=== PATIENT | female | born 1950 | race Caucasian/White ===

== ENCOUNTER → 2017-11-07 08:08 | Outpatient (CLI) | payer MEDICARE, OTHER, SELFPAY ==
--- NOTE | 2017-11-07 | DI.MRI.S_ITS ---
PROCEDURE: MR HEAD/BRAIN WO CON INDICATIONS: Facial weakness TECHNIQUE: Noncontrast axial T1 spin echo, axial T2 fast spin echo, sagittal and axial FLAIR, coronal T2 fast spin echo, axial gradient echo, axial diffusion and ADC through the brain. COMPARISON: None. FINDINGS: Image quality: Excellent. CSF Spaces: Basal cisterns are patent. No extra-axial fluid collections. Ventricles are normal in size and shape. Brain: No intracranial masses or hemorrhage. Earl/white matter interface is normal. Brainstem appears normal. Diffusion-weighted images demonstrate no acute ischemic insult. No chronic ischemic insults. Normal intravascular flow voids are present. Skull and face: Calvarium has normal marrow signal. Orbits appear normal. Sinuses: Sinuses and mastoids are clear. IMPRESSION: Mild microvascular atherosclerotic change in the deep white matter of each hemisphere, expected for age. No stroke or hemorrhage found, no mass lesion present. Cranial nerves visualized appear normal. Dictated by: River Olmos M.D. on 11/07/2017 at 9:32 Approved by: River Olmos M.D. on 11/07/2017 at 9:33
== END ==
PROVIDERS: PCP Internal Medicine; Visit Provider Specialist
DX: R29.810 Facial weakness (principal)
CPT/HCPCS: 70551

== ENCOUNTER 2018-03-31 09:29 | Day surgery (SDC) | payer MEDICARE, OTHER, SELFPAY ==
[2018-03-31 10:18] VITALS: BP 185/79; PULSE 77; RESP 15; TEMP 36.8; O2SAT 98; BMI 30.1
[2018-03-31] MEDS: SODIUM CHLORIDE 0.9% 1,000 ML 200 ML IV ×2 (10:29→12:20)
--- NOTE | 2018-03-31 12:00 | PM.HP.1 ---
History of Present Illness Date Patient Seen: 03/31/18 Time Patient Seen: 12:01 Chief complaint: 11295 SCREENING COLONOSCOPY Narrative: Patient is a woman who is legally blind. She is about to be placed on transplant list and needs a colonoscopy. Last colonoscopy was 11 years ago. Patient History Medical History Diabetes (Chronic) HPV (human papilloma virus) infection (Chronic) Hypothyroidism (Chronic) Legally blind (Chronic) Low vision, both eyes (Chronic) Orthostatic hypotension (Chronic) Surgical History H/O kidney transplant (Chronic) Family & Social History Family History: Reviewed 03/31/18 by Mello Doshi MD Social History: household members spouse Tobacco & Substance use: Smoking Status Former smoker alcohol intake current Meds Home Medications Medication Instructions Recorded Confirmed Type acetaminophen 500 mg capsule 1,000 mg PO Q6H PRN 01/27/18 01/27/18 History acyclovir 200 mg capsule 200 mg PO QAM cap 01/27/18 01/27/18 History amlodipine 2.5 mg tablet 2.5 mg PO DAILY 01/27/18 01/27/18 History amoxicillin 500 mg capsule 2,000 mg PO .prn cap 01/27/18 01/27/18 History aspirin 81 mg chewable tablet 81 mg PO DAILY 01/27/18 01/27/18 History azelaic acid 15 % topical foam 1 applictn TOP BID 01/27/18 01/27/18 History clobetasol 0.05 % scalp solution 1 applictn TOP BID 01/27/18 01/27/18 History clocortolone pivalate 0.1 % 1 applictn TOP TID 01/27/18 01/27/18 History topical cream clopidogrel 75 mg tablet 75 mg PO DAILY 01/27/18 01/27/18 History fexofenadine 180 mg tablet 180 mg PO DAILY 01/27/18 01/27/18 History furosemide 20 mg tablet 20 mg PO DAILY 01/27/18 01/27/18 History glipizide 5 mg tablet 5 mg PO DAILY 01/27/18 01/27/18 History lactulose 10 gram/15 mL oral 10 gram PO DAILY 01/27/18 01/27/18 History solution levothyroxine 75 mcg tablet 75 mcg PO DAILY 01/27/18 01/27/18 History liraglutide 0.6 mg/0.1 mL (18 mg/3 0.6 mg SUBCUT DAILY 01/27/18 01/27/18 History mL) subcutaneous pen injector mycophenolate mofetil 250 mg 25 mg PO BID cap 01/27/18 01/27/18 History capsule permethrin 5 % topical cream 1 applictn TOP ONCE 01/27/18 01/27/18 History pravastatin 80 mg tablet 80 mg PO DAILY 01/27/18 01/27/18 History sitagliptin 100 mg tablet 100 mg PO DAILY 01/27/18 01/27/18 History Review of Systems Review of Systems All systems reviewed & are unremarkable except as noted in HPI and below Exam Vital Signs (past 8 hours): - 03/31/18 10:18 Temperature 98.2 F Pulse Rate 77 Respiratory Rate 15 Blood Pressure 185/79 H Pulse Oximetry 98 Oxygen Delivery Method Room Air Narrative Exam Narrative: Operative no apparent distress. Lungs are clear heart regular rate and rhythm abdomen was protuberant soft nontender without mass. Patient is alert and oriented. Assessment & Plan Plan: Assessment/Plan Narrative: For screening colonoscopy. Risks and benefits discussed with her in the office. She has no new questions. Will proceed.
--- NOTE | 2018-03-31 12:02 | PM.PREOP ---
Pre-operative Note Interval Note History & Physical reviewed/Exam performed by Physician: Yes Changes to H&P: No ASA Class (for procedural sedation): III
[2018-03-31] MEDS: MIDAZOLAM 5 MG/5 ML VIAL IV (12:08)
[2018-03-31] MEDS: fentaNYL 250 MCG/5 ML INJ IV (12:09)
--- NOTE | 2018-03-31 12:39 | PM.OP.ENDO ---
Operative Date/Time/Diagnoses Date of procedure: 03/31/18 Time of procedure: 12:39 Pre-op diagnosis: Screening exam. Last exam 11 years ago. Patient is about to be placed on transplant list. Post-op diagnosis: other (Sigmoid diverticulosis is.) Procedure & Clinicians Study performed: Colonoscopy Same procedure as scheduled: Yes Indications: Screening Surgeon: Mello Doshi Procedure Notes SCOAP/Timeout: Performed Procedure in detail: The patient was placed in the left lateral decubitus position and underwent IV sedation directed by the surgeon consisting of fentanyl and Versed. Digital exam was unremarkable. The scope was inserted and advanced through the rectum into the sigmoid, descending, transverse, and ascending colon. The patient was noted to have diverticulosis of the sigmoid colon. The cecum was reached identified by the ileocecal valve and the appendiceal opening. The scope was gradually brought out. No Polyps were found. The scope ultimately was retroflexed in the rectum. The appearance was normal except for some minor scarring. The scope was removed and the patient tolerated the procedure well Scope withdrawal time: 10.5 min Sedation minutes: 25 Findings: diverticulosis (Sigmoid) Specimen(s): none sent Complications: none Recommendations: Colonscopy in 10 years
[2018-03-31 13:01] VITALS: BP 137/72; PULSE 75; RESP 16; TEMP 36.8; O2SAT 96
== END 2018-03-31 13:15 | disposition home or self-care (01) ==
PROVIDERS: PCP Internal Medicine; Visit Provider Specialist
PROC: 0DJD8ZZ Inspection of Lower Intestinal Tract, Via Natural or Artificial Opening Endoscopic (ICD-10-PCS; CPT 45378; principal; 2018-03-31 10:45)
DX: Z12.11 Encounter for screening for malignant neoplasm of colon (principal); K57.30 Diverticulosis of large intestine without perforation or abscess without bleeding; E11.9 Type 2 diabetes mellitus without complications; H54.8 Legal blindness, as defined in USA; I95.1 Orthostatic hypotension; Z87.891 Personal history of nicotine dependence; Z79.84 Long term (current) use of oral hypoglycemic drugs; A63.0 Anogenital (venereal) warts
CPT/HCPCS: G0121; 99152; 99153; J2250; J3010

== ENCOUNTER 2021-12-03 13:25 | Observation (INO) | payer MEDICARE, OTHER, SELFPAY ==
[2021-12-03] VITALS (15 sets, daily range): BP systolic 94–223; BP diastolic 51–94; PULSE 58–121; RESP 17–42; TEMP 36.3–36.7; O2SAT 84–100; BMI 29.0
--- NOTE | 2021-12-03 14:12 | DI.RAD.S_ITS ---
PROCEDURE: XR CHEST 1V INDICATIONS: chest pain TECHNIQUE: One view of the chest was acquired. COMPARISON: None. FINDINGS: Surgical changes and devices: None. Lungs and pleura: Lungs are clear. No pleural effusions or pneumothorax. Mediastinum: Mediastinal contours appear normal. Heart size is normal. Bones and chest wall: No suspicious bony lesions. Overlying soft tissues appear unremarkable. IMPRESSION: No acute cardiopulmonary findings. Dictated by: Angelia Ambrosio M.D. on 12/03/2021 at 15:20 Approved by: Angelia Ambrosio M.D. on 12/03/2021 at 15:21
[2021-12-03] MEDS: SODIUM CHLORIDE 0.9% 1,000 ML 1000 ML IV (14:15)
[2021-12-03 14:28] LABS: Add Manual Diff / Slide Review NO; Basophils Absolute Auto 100 /uL (0-100); Basophils Percent Auto 1.1 % (0-2); Eosinophils Absolute Auto 200 /uL (0-450); Eosinophils Percent Auto 2.5 % (2-4); Lymphocytes Absolute Auto 1000 /uL (1100-4500); Lymphocytes Percent Auto 16.4 % (25-40); Mean Corpuscular HGB Conc 33.3 % (30-36); Mean Corpuscular Hemoglobin 31.4 PG (26-34); Mean Corpuscular Volume 94.3 fL (80-100); Monocytes Absolute Auto 500 /uL (0-900); Monocytes Percent Auto 8.4 % (3-14); Neutrophils Absolute Auto 4600 /uL (1500-7000); Neutrophils Percent Auto 71.6 % (50-75); Platelet Count 263 X10^3/uL (150-400); Red Blood Cell Count 3.81 X10^6/uL (4.0-5.2); Red Cell Distribution Width 13.1 % (11.6-14.8); White Blood Cell Count 6.4 X10^3/uL (4.5-11.0)
[2021-12-03 14:41] LABS: Alanine Aminotransferase 31 IU/L (<35); Albumin 3.9 g/dL (3.5-5.0); Albumin Globulin Ratio 1.2 (1.0-2.8); Alkaline Phosphatase 126 U/L (38-126); Aspartate Aminotransferase 51 IU/L (14-36); BUN Creatinine Ratio 12.3 (6-22); Bilirubin Total 0.5 mg/dL (0.2-1.3); Blood Urea Nitrogen 38 mg/dL (7-17); Calcium 9.1 mg/dL (8.4-10.2); Carbon Dioxide 24 mmol/L (22-32); Chloride 105 mmol/L (98-107); Creatine Kinase 80 U/L (30-135); Estimated Glomerular Filt Rate 16 mL/min (>60); Globulin 3.3 g/dL (1.7-4.1); Glucose 190 mg/dL (80-110); HEMOLYSIS < 15 (0-50); Lipase 111 U/L (23-300); Sodium 139 mmol/L (137-145); Total Protein 7.2 g/dL (6.3-8.2)
--- NOTE | 2021-12-03 14:43 | ED.NEUROSD ---
HPI - Neuro Symptoms/Deficit General Chief Complaint: Neuro Symptoms/Deficit Stated Complaint: thinks she is having TIA's for 2days Time Seen by Provider: 12/03/21 14:11 Source: patient Mode of arrival: Ambulatory History of Present Illness HPI Narrative: Patient is a 71-year-old female history of hypertension, chronic kidney disease on a kidney transplant list prior kidney transplant, legally blind, orthostatic hypotension, hyperlipidemia presenting today with difficulty speaking. Both she and her state for her the last 2 days she has had a few episodes where she has unintelligible words. Has been states the longest episode was this morning and lasted for about 5 minutes. Previously did not quite last that long. States that both arms and legs got significantly weak. He thought there was bilateral facial droop. No other symptoms On Anticoagulants: No Related Data Home Medications Medication Instructions Recorded Confirmed acetaminophen 500 mg capsule 1,000 mg PO Q6H PRN 01/27/18 01/27/18 acyclovir 200 mg capsule 200 mg PO QAM 01/27/18 01/27/18 amlodipine 2.5 mg tablet 2.5 mg PO DAILY 01/27/18 01/27/18 amoxicillin 500 mg capsule 2,000 mg PO .prn dental procedures 01/27/18 01/27/18 aspirin 81 mg chewable tablet 81 mg PO DAILY 01/27/18 01/27/18 azelaic acid 15 % topical foam 1 applictn topical BID 01/27/18 01/27/18 (Finacea) clobetasol 0.05 % scalp solution 1 applictn topical BID 01/27/18 01/27/18 clocortolone pivalate 0.1 % 1 applictn topical TID 01/27/18 01/27/18 topical cream clopidogrel 75 mg tablet (Plavix) 75 mg PO DAILY 01/27/18 01/27/18 fexofenadine 180 mg tablet 180 mg PO DAILY 01/27/18 01/27/18 furosemide 20 mg tablet 20 mg PO DAILY 01/27/18 01/27/18 glipizide 5 mg tablet 5 mg PO DAILY 01/27/18 01/27/18 lactulose 10 gram/15 mL oral 10 gram PO DAILY 01/27/18 01/27/18 solution levothyroxine 75 mcg tablet 75 mcg PO DAILY 01/27/18 01/27/18 (Synthroid) liraglutide 0.6 mg/0.1 mL (18 mg/3 0.6 mg SUBCUT DAILY 01/27/18 01/27/18 mL) subcutaneous pen injector mycophenolate mofetil 250 mg 25 mg PO BID 01/27/18 01/27/18 capsule (CellCept) permethrin 5 % topical cream 1 applictn topical ONCE 01/27/18 01/27/18 pravastatin 80 mg tablet 80 mg PO DAILY 01/27/18 01/27/18 sitagliptin 100 mg tablet (Januvia) 100 mg PO DAILY 01/27/18 01/27/18 Allergies Allergy/AdvReac Type Severity Reaction Status Date / Time No Known Drug Allergies Allergy Verified 12/03/21 14:09 Review of Systems Review of Systems Narrative: GENERAL: Denies chills, fatigue, malaise, fever, sweats, travel HEENT: Denies sinus pain, ear pain, sore throat, difficulty swallowing, neck pain RESPIRATORY: Denies dyspnea, cough, wheezing, hemoptysis, sputum. CARDIOVASCULAR: Denies chest pain, palpitations, orthopnea, edema GASTROINTESTINAL: Denies nausea, vomiting, abdominal pain, diarrhea, constipation, melena. : Denies dysuria, frequency, incontinence, hematuria, urinary retention, flank pain. MUSCULOSKELETAL: Denies weakness, joint pain, or bony pain SKIN: No rash, no erythema, no pruritus NEUROLOGIC: See HPI PSYCHIATRIC: No concerning psychosocial issues. 12 point review of systems is negative except for those stated above and HPI Hematologic/Lymphatic On Anticoagulants: No Patient History Medical History (Updated 12/03/21 @ 19:31 by Vania Dowd DO) Diabetes HPV (human papilloma virus) infection Hypothyroidism Legally blind Low vision, both eyes Orthostatic hypotension Surgical History H/O kidney transplant Family History Mother No problems noted. Father Esophageal cancer Social History marital status: household members: spouse occupational status: previously employed Smoking Status: Former smoker alcohol intake: current substance use type: does not use Smoking Status: Former smoker alcohol intake frequency: 0-2 drinks per day Substance Use Type: does not use Exam Initial Vital Signs Initial Vital Signs: Vital Signs Temperature 98.1 F 12/03/21 14:01 Pulse Rate 63 12/03/21 14:01 Respiratory Rate 18 12/03/21 14:01 Blood Pressure 134/63 12/03/21 14:01 Pulse Oximetry 99 12/03/21 14:01 Oxygen Delivery Method 12/03/21 14:01 GENERAL: Alert pleasant 71-year-old female and in no acute distress. HEENT: Head atraumatic,EOMI, pupils reactive, face symmetric, moist mucous membranes CARDIOVASCULAR: Regular rate and rhythm without murmurs, rubs or gallops. RESPIRATORY: Breath sounds equal bilaterally, no wheezes rales or rhonchi. ABDOMEN: Soft, nontender. Normoactive bowel sounds all 4 quadrants. No guarding or rebound. EXTREMITIES: Normal range of motion, no clubbing or edema. Neurovascularly intact NEUROLOGICAL: Alert and oriented x4.Normal gait and speech. Cranial nerves II through XII grossly intact. Good [id number], good [id number], strength equal bilaterally, no dysarthria or aphasia, sensation in tact to soft touch bilaterally, no visual changes, no facial droop baseline vision SKIN: Warm, dry, no laceration, no petechiae, no rashes or lesions. Scores NIH Stroke Scale Level of Conciousness: Alert, keenly responsive Ask month/age: Answers both questions correctly. Open/close eyes, close hand: Performs both tasks correctly Best gaze horizontal: Normal Visual oconnor: No visual loss Facial palsy: Normal symetrical movement Left arm drift: No drift for full 10 sec Right arm drift: No drift for full 10 sec Left leg drift: No drift for full 5 sec Right leg drift: No drift for full 5 sec Limb ataxia: Absent Sensory on face/arms/legs: Normal, no sensory loss Best language: No aphasia, normal Dysarthria: Normal Extinction or inattention: No abnormality Total NIH Stroke scale score: 0 Course Orders Ordered: ED Orders 12/03/21 14:12 XR chest 1V Stat EKG-12 Lead Stat 12/03/21 14:15 Complete Blood Count AUTO DIFF Stat Comprehensive Metabolic Panel Stat Lactate (Lactic Acid) Stat Lipase Stat Partial Thromboplastin Time Stat Procalcitonin Stat Prothrombin Time INR Stat Troponin & CK Cardiac Panel Stat 12/03/21 14:54 MR head/brain wo/w con Stat 12/03/21 16:45 Ammonia (NH3) Stat COVID19 -Nasal RAPID/Pre-Proc Stat 12/03/21 18:37 Trop I [Troponin I] Stat Sodium Chloride (Normal Saline 0.9%) 1,000 mls @ 150 mls/hr IV CONT VAN Discontinued Medications Sodium Chloride (Normal Saline 0.9%) 1,000 mls @ 1,000 mls/hr IV BOLUS ONE Stop: 12/03/21 15:24 Last Infusion: 12/03/21 16:59 Dose: 0 mls/hr Documented By: Admin: 12/03/21 14:15 Dose: 1,000 mls/hr Documented By: MASOOD Vital Signs Vital signs: Vital Signs - 8 hr 12/03/21 14:01 12/03/21 14:17 12/03/21 14:30 Temperature 98.1 F Pulse Rate 63 63 Pulse Rate [Orthostatic Lying] 61 Pulse Rate [Orthostatic Sitting] 64 Pulse Rate [Orthostatic Standing] 65 Respiratory Rate 18 Blood Pressure 134/63 Blood Pressure [Orthostatic Lying] 193/79 H Blood Pressure [Orthostatic Sitting] 182/72 H Blood Pressure [Orthostatic Standing] 94/51 L Pulse Oximetry 99 96 Oxygen Delivery Method Room Air 12/03/21 14:31 12/03/21 14:31 12/03/21 15:37 Temperature Pulse Rate 58 L 63 Pulse Rate [Orthostatic Lying] Pulse Rate [Orthostatic Sitting] Pulse Rate [Orthostatic Standing] Respiratory Rate Blood Pressure 201/82 H Blood Pressure [Orthostatic Lying] Blood Pressure [Orthostatic Sitting] Blood Pressure [Orthostatic Standing] Pulse Oximetry 99 96 Oxygen Delivery Method 12/03/21 15:41 12/03/21 15:41 12/03/21 16:00 Temperature Pulse Rate 60 59 L Pulse Rate [Orthostatic Lying] Pulse Rate [Orthostatic Sitting] Pulse Rate [Orthostatic Standing] Respiratory Rate 42 H 20 Blood Pressure 203/77 H Blood Pressure [Orthostatic Lying] Blood Pressure [Orthostatic Sitting] Blood Pressure [Orthostatic Standing] Pulse Oximetry 98 100 Oxygen Delivery Method 12/03/21 16:30 12/03/21 16:30 12/03/21 17:00 Temperature Pulse Rate 61 Pulse Rate [Orthostatic Lying] Pulse Rate [Orthostatic Sitting] Pulse Rate [Orthostatic Standing] Respiratory Rate 17 Blood Pressure 223/94 H 221/86 H Blood Pressure [Orthostatic Lying] Blood Pressure [Orthostatic Sitting] Blood Pressure [Orthostatic Standing] Pulse Oximetry 99 Oxygen Delivery Method 12/03/21 17:00 12/03/21 17:30 12/03/21 18:19 Temperature Pulse Rate 60 61 121 H Pulse Rate [Orthostatic Lying] Pulse Rate [Orthostatic Sitting] Pulse Rate [Orthostatic Standing] Respiratory Rate 21 20 36 H Blood Pressure Blood Pressure [Orthostatic Lying] Blood Pressure [Orthostatic Sitting] Blood Pressure [Orthostatic Standing] Pulse Oximetry 99 99 84 L Oxygen Delivery Method 12/03/21 18:21 12/03/21 18:21 12/03/21 18:30 Temperature Pulse Rate 63 60 Pulse Rate [Orthostatic Lying] Pulse Rate [Orthostatic Sitting] Pulse Rate [Orthostatic Standing] Respiratory Rate 27 H 34 H Blood Pressure 194/79 H Blood Pressure [Orthostatic Lying] Blood Pressure [Orthostatic Sitting] Blood Pressure [Orthostatic Standing] Pulse Oximetry 99 99 Oxygen Delivery Method MDM - Neuro Symptoms/Deficit Lab Data Result diagrams: 12/03/21 14:15 12/03/21 14:15 Labs: Lab Results 12/03/21 12/03/21 12/03/21 Range/Units 14:15 14:15 14:15 WBC 6.4 (4.5-11.0) X10^3/uL RBC 3.81 L (4.0-5.2) X10^6/uL Hgb 12.0 (12.0-16.0) g/dL Hct 36.0 (36-46) % MCV 94.3 (80-100) fL MCH 31.4 (26-34) PG MCHC 33.3 (30-36) % RDW 13.1 (11.6-14.8) % Plt Count 263 (150-400) X10^3/uL Neut % (Auto) 71.6 (50-75) % Lymph % (Auto) 16.4 L (25-40) % [place]iscoe % (Auto) 8.4 (3-14) % Eos % (Auto) 2.5 (2-4) % Baso % (Auto) 1.1 (0-2) % Neut # (Auto) 4600 (2341-1060) /uL Lymph # (Auto) 1000 L (8150-3613) /uL [place]iscoe # (Auto) 500 (0-900) /uL Eos # (Auto) 200 (0-450) /uL Baso # (Auto) 100 (0-100) /uL PT 11.9 (10.1-12.7) SECONDS INR 1.0 (0.9-1.3) APTT 33 (26-36) SECONDS Sodium 139 (137-145) mmol/L Potassium 5.0 (3.4-5.1) mmol/L Chloride 105 (98-107) mmol/L Carbon Dioxide 24 (22-32) mmol/L BUN 38 H (7-17) mg/dL Creatinine 3.09 H (0.52-1.04) mg/dL Estimated GFR 16 L (>60) mL/min BUN/Creatinine Ratio 12.3 (6-22) Glucose 190 H (80-110) mg/dL Lactate (0.7-2.1) mmol/L Calcium 9.1 (8.4-10.2) mg/dL Total Bilirubin 0.5 (0.2-1.3) mg/dL AST 51 H (14-36) IU/L ALT 31 (<35) IU/L Alkaline Phosphatase 126 (38-126) U/L Ammonia (9-30) umol/L Total Creatine Kinase 80 (30-135) U/L CK-MB (CK-2) TNP CK-MB (CK-2) Rel Index TNP Troponin I 0.023 (0.01-0.034) ng/mL Total Protein 7.2 (6.3-8.2) g/dL Albumin 3.9 (3.5-5.0) g/dL Globulin 3.3 (1.7-4.1) g/dL Albumin/Globulin Ratio 1.2 (1.0-2.8) Lipase 111 (23-300) U/L Procalcitonin (<0.5) ng/mL SARS-CoV-2 (PCR) (Negative) 12/03/21 12/03/21 12/03/21 Range/Units 14:15 14:15 16:45 WBC (4.5-11.0) X10^3/uL RBC (4.0-5.2) X10^6/uL Hgb (12.0-16.0) g/dL Hct (36-46) % MCV (80-100) fL MCH (26-34) PG MCHC (30-36) % RDW (11.6-14.8) % Plt Count (150-400) X10^3/uL Neut % (Auto) (50-75) % Lymph % (Auto) (25-40) % Briscoe % (Auto) (3-14) % Eos % (Auto) (2-4) % Baso % (Auto) (0-2) % Neut # (Auto) (7609-3654) /uL Lymph # (Auto) (0031-5856) /uL Briscoe # (Auto) (0-900) /uL Eos # (Auto) (0-450) /uL Baso # (Auto) (0-100) /uL PT (10.1-12.7) SECONDS INR (0.9-1.3) APTT (26-36) SECONDS Sodium (137-145) mmol/L Potassium (3.4-5.1) mmol/L Chloride (98-107) mmol/L Carbon Dioxide (22-32) mmol/L BUN (7-17) mg/dL Creatinine (0.52-1.04) mg/dL Estimated GFR (>60) mL/min BUN/Creatinine Ratio (6-22) Glucose (80-110) mg/dL Lactate 0.7 (0.7-2.1) mmol/L Calcium (8.4-10.2) mg/dL Total Bilirubin (0.2-1.3) mg/dL AST (14-36) IU/L ALT (<35) IU/L Alkaline Phosphatase (38-126) U/L Ammonia 13 (9-30) umol/L Total Creatine Kinase (30-135) U/L CK-MB (CK-2) CK-MB (CK-2) Rel Index Troponin I (0.01-0.034) ng/mL Total Protein (6.3-8.2) g/dL Albumin (3.5-5.0) g/dL Globulin (1.7-4.1) g/dL Albumin/Globulin Ratio (1.0-2.8) Lipase (23-300) U/L Procalcitonin 0.08 (<0.5) ng/mL SARS-CoV-2 (PCR) (Negative) 12/03/21 Range/Units 16:45 WBC (4.5-11.0) X10^3/uL RBC (4.0-5.2) X10^6/uL Hgb (12.0-16.0) g/dL Hct (36-46) % MCV (80-100) fL MCH (26-34) PG MCHC (30-36) % RDW (11.6-14.8) % Plt Count (150-400) X10^3/uL Neut % (Auto) (50-75) % Lymph % (Auto) (25-40) % Briscoe % (Auto) (3-14) % Eos % (Auto) (2-4) % Baso % (Auto) (0-2) % Neut # (Auto) (9777-2921) /uL Lymph # (Auto) (6388-4544) /uL Briscoe # (Auto) (0-900) /uL Eos # (Auto) (0-450) /uL Baso # (Auto) (0-100) /uL PT (10.1-12.7) SECONDS INR (0.9-1.3) APTT (26-36) SECONDS Sodium (137-145) mmol/L Potassium (3.4-5.1) mmol/L Chloride (98-107) mmol/L Carbon Dioxide (22-32) mmol/L BUN (7-17) mg/dL Creatinine (0.52-1.04) mg/dL Estimated GFR (>60) mL/min BUN/Creatinine Ratio (6-22) Glucose (80-110) mg/dL Lactate (0.7-2.1) mmol/L Calcium (8.4-10.2) mg/dL Total Bilirubin (0.2-1.3) mg/dL AST (14-36) IU/L ALT (<35) IU/L Alkaline Phosphatase (38-126) U/L Ammonia (9-30) umol/L Total Creatine Kinase (30-135) U/L CK-MB (CK-2) CK-MB (CK-2) Rel Index Troponin I (0.01-0.034) ng/mL Total Protein (6.3-8.2) g/dL Albumin (3.5-5.0) g/dL Globulin (1.7-4.1) g/dL Albumin/Globulin Ratio (1.0-2.8) Lipase (23-300) U/L Procalcitonin (<0.5) ng/mL SARS-CoV-2 (PCR) Negative (Negative) Point of Care Testing Glucose POC 182 Imaging Data MR: Radiologist's Impression: t: Maria T Anaya MR#: [id number] : 1950 Acct:[id number] Age/Sex: 71 / F Date of Service: 12/03/21 Loc: ED Accession Number: [id number] ?? Procedure: MR head/brain wo/w con Ordering Provider: Vania Dowd D.O. PROCEDURE:? MR HEAD/BRAIN WO/W CON ? INDICATIONS:? probable TIA ? TECHNIQUE:? Noncontrast axial T1 spin echo, axial T2 fast spin echo, sagittal and axial FLAIR, coronal T2 fast spin echo, axial gradient echo, axial diffusion and ADC through the brain.? After the administration of contrast, axial and coronal and sagittal 3D VIBE or T1 spin echo with fat saturation through the brain.? ? COMPARISON:? [facility], MR, MR HEAD/BRAIN WO CON, 11/07/2017, 8:31. ? FINDINGS:? Image quality:? Excellent.? ? CSF Spaces:? Basal cisterns are patent.? No extra-axial fluid collections.? Ventricles are normal in size and shape.? Incidental isolated cavum vergae ? Brain:? No intracranial masses or acute hemorrhage.? Earl/white matter interface is normal.? Brainstem appears normal.? Diffusion-weighted images demonstrate no acute infarct.? Normal intravascular flow voids are present.? Atrophy and confluent white matter chronic ischemic changes similar to the prior.? There are small foci of microhemorrhage in the right frontal and cerebellar deep white matter have increased in number from the prior exam ? Skull and face:? Calvarial marrow is normal in signal.? Orbits appear normal.? Bilateral intraocular lens replacements noted. ? Sinuses:? Sinuses and mastoids appear clear.? ? ? IMPRESSION:? ? Atrophy and chronic ischemic change without acute infarct, acute intracranial hemorrhage or mass lesion. ? Multifocal punctate old microhemorrhage in the right frontal and bilateral cerebellar deep white matter have increased in number from the prior exam, and may reflect hypertensive encephalopathy versus less likely amyloid angiopathy ? ? ? Approved by: Oni Garcia M.D. on 12/03/2021 at 14:49? ECG Data Interpretation: Normal rhythm rate 60 p.r. interval 150 QRS 90 QTC 432 H noted with T-wave inversions and strain in lateral leads no ST elevation no priors to compare MDM Narrative Medical decision making narrative: Patient has confusing story certainly concerning for probable TIA. She has chronic kidney disease with baseline creatinine of 3.1 today seems to be at baseline. She currently has an NIH of 0 however her blood pressure is quite elevated. She has longstanding orthostatic hypotension however she states throughout the day her blood pressure gets quite high. Elevated blood pressure could for her at risk for TIA. MRI is negative. Unable to do angio due to creatinine. Dr. Aguilar in ED to seen evaluated accepts for observation Discharge Plan Departure Patient Disposition: Admitted as Observation Clinical Impression: Transient cerebral ischemia Admit Date/Time: 12/03/21 18:30 Admit Provider: Samuel Aguilar
[2021-12-03 14:44] LABS: Prothrombin Time 11.9 SECONDS (10.1-12.7)
[2021-12-03 14:47] LABS: PTT Partial Thromboplastin Tim 33 SECONDS (26-36)
[2021-12-03 14:53] LABS: Lactate (Lactic Acid) 0.7 mmol/L (0.7-2.1); Troponin I 0.023 ng/mL (0.01-0.034)
--- NOTE | 2021-12-03 14:54 | DI.MRI.S_ITS ---
PROCEDURE: MR HEAD/BRAIN WO/W CON INDICATIONS: probable TIA TECHNIQUE: Noncontrast axial T1 spin echo, axial T2 fast spin echo, sagittal and axial FLAIR, coronal T2 fast spin echo, axial gradient echo, axial diffusion and ADC through the brain. After the administration of contrast, axial and coronal and sagittal 3D VIBE or T1 spin echo with fat saturation through the brain. COMPARISON: [facility], MR, MR HEAD/BRAIN WO CON, 11/07/2017, 8:31. FINDINGS: Image quality: Excellent. CSF Spaces: Basal cisterns are patent. No extra-axial fluid collections. Ventricles are normal in size and shape. Incidental isolated cavum vergae Brain: No intracranial masses or acute hemorrhage. Earl/white matter interface is normal. Brainstem appears normal. Diffusion-weighted images demonstrate no acute infarct. Normal intravascular flow voids are present. Atrophy and confluent white matter chronic ischemic changes similar to the prior. There are small foci of microhemorrhage in the right frontal and cerebellar deep white matter have increased in number from the prior exam Skull and face: Calvarial marrow is normal in signal. Orbits appear normal. Bilateral intraocular lens replacements noted. Sinuses: Sinuses and mastoids appear clear. IMPRESSION: Atrophy and chronic ischemic change without acute infarct, acute intracranial hemorrhage or mass lesion. Multifocal punctate old microhemorrhage in the right frontal and bilateral cerebellar deep white matter have increased in number from the prior exam, and may reflect hypertensive encephalopathy versus less likely amyloid angiopathy Approved by: Oni Garcia M.D. on 12/03/2021 at 14:49
[2021-12-03 15:10] LABS: Procalcitonin 0.08 ng/mL (<0.5)
[2021-12-03 17:14] LABS: Ammonia (NH3) 13 umol/L (9-30)
[2021-12-03 19:09] LABS: Troponin I 0.028 ng/mL (0.01-0.034)
[2021-12-03 19:14] LABS: COVID19 -Nasal RAPID Negative (Negative)
--- NOTE | 2021-12-03 19:51 | PM.HP.1 ---
History of Present Illness History of Present Illness Date Patient Seen: 12/03/21 Time Patient Seen: 18:00 Chief complaint: thinks she is having TIA's for 2days Narrative: This is a 71-year-old female with the past medical history prior kidney transplant with current possible transplant failure with a baseline creatinine of around 3.1, significant orthostatic hypotension and hypertension, type 2 diabetes, hypothyroidism, and hyperlipidemia who presented with approximately 6 episodes of global weakness that have happened over the past 2 days. She describes these episodes as 2-5 minutes in length, occurring 3 times each of the last 2 days, where she feels extremely weak like she cannot move. She denies any chest pain, palpitations, lightheadedness, or loss of consciousness during the episodes. Her further relays that she cannot move either side during these episodes, and that she tries to speak but he cannot understand her. This resolves after a couple of minutes. There is global weakness, but no facial droop, seizure activity, or loss of bowel or bladder function. It sometimes improves with rest, but not always, and sometimes is worsened with standing, but less so today as she has had episodes at rest. She has had multiple stress tests over the past few years as part of her transplant evaluations, and is actually scheduled for one on 12/25 with . EKG is sinus rhythm with lateral borderline ST depression and T-wave inversion. No prior tracings are available for review and were similar on repeat examination a couple hours after initial study in the emergency room. Her vital signs were notable for hypertension, but with standing her systolic blood pressure dropped nearly 100 points. The remainder her vital signs were unremarkable. Laboratory evaluation was notable for creatinine of 3.09 consistent with the patient's previous known baseline, so of 190, troponin was 0.023 which increased slightly to 0.028 on repeat but is still within normal limits. COVID-19 testing was negative. MRI showed atrophy and chronic ischemic change without acute infarct, but did show old microhemorrhage in the right frontal and bilateral cerebellar deep white matter. Is a admitted for further evaluation of these possible presyncopal episodes or possible TIA. Patient History Medical History (Updated 12/03/21 @ 19:31 by Vania Dowd DO) Diabetes HPV (human papilloma virus) infection Hypothyroidism Legally blind Low vision, both eyes Orthostatic hypotension Surgical History (Updated 12/03/21 @ 20:05 by Samuel Aguilar DO) H/O kidney transplant H/O: hysterectomy Family & Social History Family History (Updated 12/03/21 @ 20:06 by Samuel Aguilar DO) Mother Dementia Father Esophageal cancer Heart attack Social History: household members spouse Safety & Behavioral: Feels Safe in Current Yes Environment Been Physically Hurt or No Threatened By a Person Tobacco & Substance use: Smoking Status Former smoker alcohol intake current alcohol intake frequency 0-2 drinks per day Substance Use Type does not use Meds Home Medications and Allergies Home Medications Medication Instructions Recorded Confirmed Type acetaminophen 500 mg capsule 1,000 mg PO Q6H PRN 01/27/18 01/27/18 History acyclovir 200 mg capsule 200 mg PO QAM 01/27/18 01/27/18 History amlodipine 2.5 mg tablet 2.5 mg PO DAILY 01/27/18 01/27/18 History amoxicillin 500 mg capsule 2,000 mg PO .prn dental procedures 01/27/18 01/27/18 History aspirin 81 mg chewable tablet 81 mg PO DAILY 01/27/18 01/27/18 History azelaic acid 15 % topical foam 1 applictn topical BID 01/27/18 01/27/18 History (Finacea) clobetasol 0.05 % scalp solution 1 applictn topical BID 01/27/18 01/27/18 History clocortolone pivalate 0.1 % 1 applictn topical TID 01/27/18 01/27/18 History topical cream clopidogrel 75 mg tablet (Plavix) 75 mg PO DAILY 01/27/18 01/27/18 History fexofenadine 180 mg tablet 180 mg PO DAILY 01/27/18 01/27/18 History furosemide 20 mg tablet 20 mg PO DAILY 01/27/18 01/27/18 History glipizide 5 mg tablet 5 mg PO DAILY 01/27/18 01/27/18 History lactulose 10 gram/15 mL oral 10 gram PO DAILY 01/27/18 01/27/18 History solution levothyroxine 75 mcg tablet 75 mcg PO DAILY 01/27/18 01/27/18 History (Synthroid) liraglutide 0.6 mg/0.1 mL (18 mg/3 0.6 mg SUBCUT DAILY 01/27/18 01/27/18 History mL) subcutaneous pen injector mycophenolate mofetil 250 mg 25 mg PO BID 01/27/18 01/27/18 History capsule (CellCept) permethrin 5 % topical cream 1 applictn topical ONCE 01/27/18 01/27/18 History pravastatin 80 mg tablet 80 mg PO DAILY 01/27/18 01/27/18 History sitagliptin 100 mg tablet (Januvia) 100 mg PO DAILY 01/27/18 01/27/18 History mycophenolate mofetil 250 mg 250 mg PO BID 12/03/21 12/03/21 History capsule Allergies Allergy/AdvReac Type Severity Reaction Status Date / Time No Known Drug Allergies Allergy Verified 12/03/21 14:09 Review of Systems Review of Systems Narrative: All other systems reviewed with the patient and are negative unless otherwise stated. Exam Vital Signs (past 8 hours): - 12/03/21 14:01 12/03/21 14:17 12/03/21 14:30 Temperature 98.1 F Pulse Rate 63 63 Pulse Rate [Orthostatic Lying] 61 Pulse Rate [Orthostatic Sitting] 64 Pulse Rate [Orthostatic Standing] 65 Respiratory Rate 18 Blood Pressure 134/63 Blood Pressure [Orthostatic Lying] 193/79 H Blood Pressure [Orthostatic Sitting] 182/72 H Blood Pressure [Orthostatic Standing] 94/51 L Pulse Oximetry 99 96 Oxygen Delivery Method Room Air 12/03/21 14:31 12/03/21 14:31 12/03/21 15:37 Temperature Pulse Rate 58 L 63 Pulse Rate [Orthostatic Lying] Pulse Rate [Orthostatic Sitting] Pulse Rate [Orthostatic Standing] Respiratory Rate Blood Pressure 201/82 H Blood Pressure [Orthostatic Lying] Blood Pressure [Orthostatic Sitting] Blood Pressure [Orthostatic Standing] Pulse Oximetry 99 96 Oxygen Delivery Method 12/03/21 15:41 12/03/21 15:41 12/03/21 16:00 Temperature Pulse Rate 60 59 L Pulse Rate [Orthostatic Lying] Pulse Rate [Orthostatic Sitting] Pulse Rate [Orthostatic Standing] Respiratory Rate 42 H 20 Blood Pressure 203/77 H Blood Pressure [Orthostatic Lying] Blood Pressure [Orthostatic Sitting] Blood Pressure [Orthostatic Standing] Pulse Oximetry 98 100 Oxygen Delivery Method 12/03/21 16:30 12/03/21 16:30 12/03/21 17:00 Temperature Pulse Rate 61 Pulse Rate [Orthostatic Lying] Pulse Rate [Orthostatic Sitting] Pulse Rate [Orthostatic Standing] Respiratory Rate 17 Blood Pressure 223/94 H 221/86 H Blood Pressure [Orthostatic Lying] Blood Pressure [Orthostatic Sitting] Blood Pressure [Orthostatic Standing] Pulse Oximetry 99 Oxygen Delivery Method 12/03/21 17:00 12/03/21 17:30 12/03/21 18:19 Temperature Pulse Rate 60 61 121 H Pulse Rate [Orthostatic Lying] Pulse Rate [Orthostatic Sitting] Pulse Rate [Orthostatic Standing] Respiratory Rate 21 20 36 H Blood Pressure Blood Pressure [Orthostatic Lying] Blood Pressure [Orthostatic Sitting] Blood Pressure [Orthostatic Standing] Pulse Oximetry 99 99 84 L Oxygen Delivery Method 12/03/21 18:21 12/03/21 18:21 12/03/21 18:30 Temperature Pulse Rate 63 60 Pulse Rate [Orthostatic Lying] Pulse Rate [Orthostatic Sitting] Pulse Rate [Orthostatic Standing] Respiratory Rate 27 H 34 H Blood Pressure 194/79 H Blood Pressure [Orthostatic Lying] Blood Pressure [Orthostatic Sitting] Blood Pressure [Orthostatic Standing] Pulse Oximetry 99 99 Oxygen Delivery Method 12/03/21 18:31 12/03/21 18:31 Temperature Pulse Rate 60 Pulse Rate [Orthostatic Lying] Pulse Rate [Orthostatic Sitting] Pulse Rate [Orthostatic Standing] Respiratory Rate 30 H Blood Pressure 183/77 H Blood Pressure [Orthostatic Lying] Blood Pressure [Orthostatic Sitting] Blood Pressure [Orthostatic Standing] Pulse Oximetry 99 Oxygen Delivery Method Oxygen Delivery Method Room Air Narrative Exam Narrative: General:? Patient is well developed and well nourished, in no distress at this time. HEENT:? Normocephalic, atraumatic, extraocular muscles intact, oral pharynx is clear and mucous membranes are moist. Neck: supple and symmetric, trachea is midline, no cervical adenopathy. Negative for JVD Chest:? Normal AP diameter and contour without kyphoscoliosis, no tachypnea, equal chest rise bilaterally. Lungs:? CTA b/l no wheezing rhonchi or rales. Cardio:?RRR no m/r/g. Abdomen: S NT ND. No CVA tenderness. Musculoskeletal:? Muscle strength and tone are equal within normal limits, no deformity. Extremities: No edema or joint effusions. No cyanosis or clubbing. Skin:? Pale,? Warm to touch,dry and intact without rashes, ulcerations or petechiae.? Neuro:? Alert and orientated x3,? sensation to touch intact in all extremities, no gross deficits noted of cranial nerves. Psych:? Patient has a well-kept appearance, appropriate affect, mental status attitude thought context and judgment are appropriate for age. Objective ECG Impression: Lateral T-wave inversion and borderline ST depression, slightly improved on repeat examination, but fairly similar study is interpreted by me. Labs Result Diagrams: 12/03/21 14:15 12/03/21 14:15 Labs: Laboratory Results - last 24 hr 12/03/21 12/03/21 12/03/21 14:15 14:15 14:15 WBC 6.4 RBC 3.81 L Hgb 12.0 Hct 36.0 MCV 94.3 MCH 31.4 MCHC 33.3 RDW 13.1 Plt Count 263 Neut % (Auto) 71.6 Lymph % (Auto) 16.4 L [place] % (Auto) 8.4 Eos % (Auto) 2.5 Baso % (Auto) 1.1 Neut # (Auto) 4600 Lymph # (Auto) 1000 L [place] # (Auto) 500 Eos # (Auto) 200 Baso # (Auto) 100 PT 11.9 INR 1.0 APTT 33 Sodium 139 Potassium 5.0 Chloride 105 Carbon Dioxide 24 BUN 38 H Creatinine 3.09 H Estimated GFR 16 L BUN/Creatinine Ratio 12.3 Glucose 190 H Lactate Calcium 9.1 Total Bilirubin 0.5 AST 51 H ALT 31 Alkaline Phosphatase 126 Ammonia Total Creatine Kinase 80 CK-MB (CK-2) TNP CK-MB (CK-2) Rel Index TNP Troponin I 0.023 Total Protein 7.2 Albumin 3.9 Globulin 3.3 Albumin/Globulin Ratio 1.2 Lipase 111 Procalcitonin SARS-CoV-2 (PCR) 12/03/21 12/03/21 12/03/21 14:15 14:15 16:45 WBC RBC Hgb Hct MCV MCH MCHC RDW Plt Count Neut % (Auto) Lymph % (Auto) [place] % (Auto) Eos % (Auto) Baso % (Auto) Neut # (Auto) Lymph # (Auto) [place] # (Auto) Eos # (Auto) Baso # (Auto) PT INR APTT Sodium Potassium Chloride Carbon Dioxide BUN Creatinine Estimated GFR BUN/Creatinine Ratio Glucose Lactate 0.7 Calcium Total Bilirubin AST ALT Alkaline Phosphatase Ammonia 13 Total Creatine Kinase CK-MB (CK-2) CK-MB (CK-2) Rel Index Troponin I Total Protein Albumin Globulin Albumin/Globulin Ratio Lipase Procalcitonin 0.08 SARS-CoV-2 (PCR) 12/03/21 12/03/21 16:45 18:37 WBC RBC Hgb Hct MCV MCH MCHC RDW Plt Count Neut % (Auto) Lymph % (Auto) [place] % (Auto) Eos % (Auto) Baso % (Auto) Neut # (Auto) Lymph # (Auto) [place] # (Auto) Eos # (Auto) Baso # (Auto) PT INR APTT Sodium Potassium Chloride Carbon Dioxide BUN Creatinine Estimated GFR BUN/Creatinine Ratio Glucose Lactate Calcium Total Bilirubin AST ALT Alkaline Phosphatase Ammonia Total Creatine Kinase CK-MB (CK-2) CK-MB (CK-2) Rel Index Troponin I 0.028 Total Protein Albumin Globulin Albumin/Globulin Ratio Lipase Procalcitonin SARS-CoV-2 (PCR) Negative Assessment & Plan Assessment & Plan narrative: 1. Intermittent presyncopal episodes or possible TIA - unclear etiology of presenting episodes. May be TIA, cardiac related, or symptomatic hypotension. - continue tele - MRI negative for acute infarct, but does show probable hypertensive disease. Unable to further lower systolic BP while resting given her significant drop while standing. - continue coreg for now, continue ASA and home statin therapy. - will order TTE. - given EKG findings, suspect old ischemia but continue to trend troponins to rule out ACS. Has stress test scheduled next month at . 2. Orthostatic hypotension - PT/OT consultation. 3. History of renal transplant, with chronic kidney disease stage IV - continue home medications 4. Essential hypertension - continue home medications for now. Consider holding coreg but may not be able to do much regarding patient's hypertension with her degree of orthostasis. 5. Hypothyroidism, chronic - continue home medications, check TSH 6. DM2 - diabetic controlled diet, check A1c. FS ACHS, if high can start sliding scale initially. Code: Full, surrogate is her spouse Dispo: admit under observation DVT: Lovenox daily COVID-19 COVID-19 status: Negative Time Spent With Patient Critical Care time: I spent a total of [] minutes of critical care time on this patient's care today; this time is exclusive of procedural time. Quality MIPS - Admit I confirm the patient?s Advance Care Plan is present, Code status is documented, Surrogate decision maker is in patient?s record [If Yes, STOP here]: Yes
--- NOTE | 2021-12-03 20:12 | DI.ECHO.S_ITS ---
[facility] +---------+ [facility] +---------+ : : [address] : : : : [id number] : : : : Phone: [phone]---------+ Echocardiogram Report + + :Name: MANNY CARBONE Study Date: 12/04/2021 Height: 63 in : :[facility] ReadingLocation: Weight: 164 lb : : Gender: Female BSA: 1.8 m2 : :: 1950 Age: 71 yrs BP: 186/62 mmHg: :Reason For Study: HYPOTENSION, PRESYNCOPE VS TIA : :Ordering Physician: DAVID, : :ТАТЬЯНА MENEZES Performed By: Sadaf Guerrero : :Referring: ТАТЬЯНА HERNANDEZ : + + Interpretation Summary Bubbles seem to appear after Valsalva release. The patient was in sinus rhythm with heart rates between 61-84 bpm during the exam. The left ventricle is normal in size. There is mild asymmetric left ventricular hypertrophy. Diastolic parameters suggest a relaxation abnormality of the left ventricle, consistent with probable normal filling pressures. The left atrium is mildly dilated. Injection of contrast documented no interatrial shunt. There is mild mitral regurgitation. There is mild aortic regurgitation. No prior study for comparison. Procedure: A two-dimensional transthoracic echocardiogram with color flow and Doppler was performed. The study quality was technically adequate. There is no prior echocardiogram noted for this patient. A saline contrast injection was performed to assess for cardiac shunting. The injection was performed through an intravenous line in the right arm. The patient was in sinus rhythm with heart rates between 61-84 bpm during the exam. Left Ventricle: The left ventricle is normal in size. There is mild asymmetric left ventricular hypertrophy. The ejection fraction is estimated to be 55-60%. Diastolic parameters suggest a relaxation abnormality of the left ventricle, consistent with probable normal filling pressures. Right Ventricle: The right ventricle is normal in size and function. Atria: The left atrium is mildly dilated. Right atrial size is normal. Injection of contrast documented no interatrial shunt. Mitral Valve: The mitral valve leaflets appear mildly thickened, but open well. There is mild mitral regurgitation. Aortic Valve: The aortic valve is trileaflet. The aortic valve opens well. There is no aortic valve stenosis. There is mild aortic regurgitation. Tricuspid Valve: The tricuspid valve is normal in structure and function. Pulmonary artery pressures cannot be estimated because of the lack of a measurable TR jet velocity. Pulmonic Valve: The pulmonic valve leaflets are thin and pliable; valve motion is normal. There is mild pulmonic regurgitation. Great Vessels: The aortic root is normal size. The dimensions of the ascending aorta are normal. The IVC is of normal diameter and collapses greater than 50% with a sniff. This suggests a low right atrial pressure of 3 mm Hg. Pericardium/ Pleura There is no pericardial effusion. There is no pleural effusion. MMode/2D Measurements & Calculations LVIDd: 4.3 cm LVOT diam: 1.9 cm LVIDs: 2.9 cm Ao root diam: 2.7 cm FS: 31.9 % asc Aorta Diam: 3.1 cm IVSd: 1.3 cm Ao Arch Diam (Prox Trans): 2.9 cm LVPWd: 0.95 cm LV anderson. diameter/BSA (cm/m^2): 2.4 LV sys. diameter/BSA (cm/m^2): 1.6 LA A2 area: 20.7 cm2 RA long axis: 4.9 cm LA A4 area: 21.1 cm2 RA area: 16.1 cm2 LA length (vol): 5.4 cm RA vol: 45.1 ml LA vol: 68.6 ml RA : 25.4 ml/m2 LA vol index: 38.6 ml/m2 IVC diam: 1.6 cm RVD1 (basal): 2.7 cm RVD2 (mid): 2.6 cm TAPSE: 2.1 cm Doppler Measurements & Calculations Ao V2 max: 144.9 cm/sec LVOT Max Tavo: 88.1 cm/sec Ao V2 mean: 100.3 cm/sec LV V1 max P.1 mmHg Ao max P.4 mmHg LV V1 VTI: 21.3 cm Ao mean P.4 mmHg NOLBERTO(I,D): 1.7 cm2 Ao V2 VTI: 34.4 cm NOLBERTO(V,D): 1.7 cm2 sev ratio: 0.62 NOLBERTO indexed to BSA (cm^2/m^2): 0.97 AI P1/2t: 516.5 msec AI dec slope: 264.2 cm/sec2 MV E max tavo: 65.6 cm/sec PA V2 max: 84.2 cm/sec MV A max tavo: 94.3 cm/sec PA V2 mean: 59.1 cm/sec MV E/A: 0.70 PA mean P.6 mmHg Med Peak E' Tavo: 3.3 cm/sec PA pr(Accel): 25.9 mmHg E/E' med: 19.6 Lat Peak E' Tavo: 5.4 cm/sec E/E' lat: 12.1 E/e' average: 15.8 MV dec time: 0.33 sec SV(LVOT): 59.2 ml Reading Physician:MADHU
[2021-12-03] MEDS: MYCOPHENOLATE MOFETIL 500 MG TABLET 250 MG PO (21:58)
[2021-12-03] MEDS: ATORVASTATIN 20 MG TABLET 40 MG PO (22:01)
[2021-12-03] MEDS: ASPIRIN EC 81 MG TABLET PO (22:35)
[2021-12-04] VITALS: BP 145/62; PULSE 66; RESP 22; TEMP 36.4; O2SAT 97; O2SAT 98
[2021-12-04 04:00] VITALS: BP 177/65; PULSE 64; RESP 19; TEMP 36.6; O2SAT 99
[2021-12-04] MEDS: LEVOTHYROXINE 75 MCG TABLET 50 MCG PO (06:19)
[2021-12-04 07:18] LABS: Add Manual Diff / Slide Review NO; Basophils Absolute Auto 100 /uL (0-100); Eosinophils Absolute Auto 200 /uL (0-450); Eosinophils Percent Auto 3.8 % (2-4); Hemoglobin 11.2 g/dL (12.0-16.0); Lymphocytes Absolute Auto 1600 /uL (1100-4500); Lymphocytes Percent Auto 25.5 % (25-40); Mean Corpuscular HGB Conc 33.9 % (30-36); Mean Corpuscular Hemoglobin 31.6 PG (26-34); Mean Corpuscular Volume 93.2 fL (80-100); Monocytes Absolute Auto 800 /uL (0-900); Monocytes Percent Auto 12.3 % (3-14); Neutrophils Absolute Auto 3600 /uL (1500-7000); Neutrophils Percent Auto 57.4 % (50-75); Platelet Count 223 X10^3/uL (150-400); Red Blood Cell Count 3.54 X10^6/uL (4.0-5.2); Red Cell Distribution Width 12.9 % (11.6-14.8); White Blood Cell Count 6.3 X10^3/uL (4.5-11.0)
[2021-12-04 07:28] LABS: BUN Creatinine Ratio 12.2 (6-22); Blood Urea Nitrogen 33 mg/dL (7-17); Carbon Dioxide 21 mmol/L (22-32); Chloride 111 mmol/L (98-107); Cholesterol 146 mg/dL (140-199); Estimated Glomerular Filt Rate 18 mL/min (>60); Glucose 68 mg/dL (80-110); HDL Cholesterol 37 mg/dL (40-60); HEMOLYSIS 17 (0-50); LDL Cholesterol Calculated 51 mg/dL (<100); Magnesium 1.8 mg/dL (1.6-2.3); Potassium 4.7 mmol/L (3.4-5.1); Sodium 140 mmol/L (137-145); Triglycerides 290 mg/dL (35-150)
[2021-12-04 07:30] LABS: Hemoglobin A1C% w Est Avg Glu 7.5 % (4.0-6.0)
[2021-12-04 07:59] LABS: TSH w/ Reflex to FT4 0.55 uIU/mL (0.47-4.68)
[2021-12-04 08:16] VITALS: BP 177/61; PULSE 63; RESP 16; TEMP 36.4; O2SAT 96
[2021-12-04] MEDS: ACYCLOVIR 200 MG CAPSULE PO (08:49)
[2021-12-04] MEDS: AMLODIPINE 5 MG TABLET 2.5 MG PO (08:50)
[2021-12-04] MEDS: MYCOPHENOLATE MOFETIL 500 MG TABLET 250 MG PO (08:51)
[2021-12-04] MEDS: LORATADINE 10 MG TABLET PO (08:51)
[2021-12-04] MEDS: ENOXAPARIN 30 MG/0.3 ML SYRINGE SUBCUT (08:53)
--- NOTE | 2021-12-04 09:25 | CM.DANOTE ---
DCP Assessment: Payor confirmed: Medicare & for life PCP confirmed: Gene Collins MD Pt is a 71 y.o. F who presented to the ER with difficulty speaking. accompanied pt to the ER and thought that there could be some facial drooping. Pt has a history of HTN, CKD, legally blind, orthostatic hypotension, and hyperlipidemia. The concern is a possible TIA. BP was high in the ER. Pt admitted under observation for further management and evaluation of her symptoms. DCP met with pt this morning to discuss discharge needs. Spouse, Shoaib, at the bedside. Pt sitting up in bed. DCP introduced herself and role. Pt states they live in a single story house in [place]. Pt states she relies on her spouse for transportation but sometimes uses paratransit if needed. Pt states that she has trouble balancing while walking but does have a cane she can use. Pt declines owning a walker. Pt states that she does some stuff around the house but her spouse is the main parachute rigger for the house. Pt states that she does do paperwork and balance checkbooks. Pt states that she had a home grocery checker come to the house this past week for a blood draw but declines any home health services in the past. Pt states that she does not have any other family in the area, just me and him she states. Pt states that she does not need any resources at this time but if anything arises she would let DCP know. Whiteboard was updated and instructed to call if any other concerns arise. Pt and pt spouse thankful for discussion. P: Discharge needs unclear at this time. DCP to continue to follow pt case and assist where is needed. If no needs arise, pt to discharge home with spouse. Luna uJan RN/TODD Discharge Planning/Care Management CM Discharge Assessment Start: 12/04/21 09:02 Freq: Status: Active Protocol: Document 12/04/21 09:24 MICHELLE (Rec: 12/04/21 09:25 MICHELLE [id number]) Discharge Planning Assessment Assigned Dag Sprayer Luna Juan RN/TODD Advance Directives? No History Provided By Patient Prior Living Arrangements House Household Members spouse Type of transporation used prior to Relies on Others admit Comment Also uses [employer]rans[employer] when not utilizing spouse transport. Independent with ADL's Yes Is patient alert and oriented? Yes Needs Assistance With Home Chores / Shopping Comment Spouse does most of the chores . Caregiver for Another No DME Already Rented / Owned FWW / Walker Comment Cane Discharge Plan Home Transportation Arrangement Spouse POV Referrals Initiated None needed Additional Comment At this time. R/O HH services . Whiteboard Updated in Patient Room with Yes name and ext. # of Dag Sprayer Comment Instructed to call if needed. Review Status In Process Please Provide Date Initial DC 12/04/21 Assessment Was Performed Next Review Type Continued Stay Review
--- NOTE | 2021-12-04 10:50 | PT.IIE ---
Surgical History (Last Updated 12/03/21 @ 20:05 by Samuel Aguilar DO) H/O kidney transplant H/O: hysterectomy Medical History (Last Reviewed 12/03/21 @ 15:51 by Vania Dowd DO) Diabetes HPV (human papilloma virus) infection Hypothyroidism Legally blind Low vision, both eyes Orthostatic hypotension Physical Therapy Inpatient Evaluation/Re-Eval M1 PT/OT-IP Prior Functional Status Start: 12/04/21 14:01 Freq: NEEDED Status: Active Protocol: Document 12/04/21 10:50 AB (Rec: 12/04/21 14:24 AB [email or web address]) Medical Review Prior Functional Status Medical History Reviewed Yes Communication able to make needs known Mobility and Gait pt stated that she is modified independent with all mobilities and ambulation without AD indoors but uses her walking stick for outdoor mobility due to her vision problem. Pt is legally blind. pt stated that she has chronic problems with her BP but able to manage and ambulate short distances but then when she feels that her blood pressure is decreases she will be able to sit down and rest. Social History Household Members spouse Living Arrangements House Number of Floors (Floors) One Floor Number of Stairs To Enter/Railing? 2 platform step to enter the house Home Environment Standard Height Toilet,Walk in Shower,Tub/Shower Home Equipment Hand Held Shower Additional Social History Comment pt has a walking stick M2 PT-IP Current Condition Start: 12/04/21 14:01 Freq: NEEDED Status: Active Protocol: Document 12/04/21 10:50 AB (Rec: 12/04/21 14:24 AB [email or web address]) Physical Therapy Current Condition Current Condition Evaluation Date 12/04/21 Treatment Diagnosis hypotension; difficulty in walking Onset Date 12/03/21 M3 PT-IP Subjective Start: 12/04/21 14:01 Freq: NEEDED Status: Active Protocol: Document 12/04/21 10:50 AB (Rec: 12/04/21 14:24 AB [email or web address]) Subjective Physical Therapy Visit Type Type Initial Evaluation Visit Start Time 10:50 Visit Stop Time 11:36 Total Visit Minutes 46 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 completed supine to sit SBA. able to sit on EOB SBA. BP in sitting : 163/59. pt tolerated sitting for ~ 2 more minutes. BP checked again: 171/75. pt completed sit to stand SBA and able to stand CGA without AD. BP checked but pt unable to tolerate standing long enough for BP reading and has to sit back down. Tolerated ~ 10 sec of standing. c/o dizziness, sweating and weakness. pt sat back. BP checked: 130/55. pt rested sitting on EOB and symptoms decreased with just slight dizziness. BP checked again after restin/44. pt completed sit to stand again SBA. BP checked and again unable to tolerate much standing and has to sit back down. Pt then had slurred speech when trying to talk and answer questions. BP in sittin/47. Pt laid back in bed SBA. pt then again to answer questions. BP checked : 171/60. positioned pt in bed. call light and table placed within reach. informed pt regarding PT and that pt's symptoms are medical and at this time, until pt is more medically stable and able to tolerate upright activities, no further PT is appropriate at this time. recommending pt obtain a w/c and pt stated that she can borrow from the senior center. pt understood and agreed. informed MD regarding BP and pt's symptoms and agreed to have PT d/c at this time and nursing to monitor pt's BP and activity tolerance and will re-order PT once pt is more medically stable and able to tolerate more upright activities. informed nurse and case assembler regarding plan. PT-Balance Assessment Sitting Balance and Reactions Static Sitting Balance Ability Normal Dynamic Sitting Balance Ability Normal Standing Balance and Reactions Static Standing Balance Ability Good Device Used without AD M5 PT-IP Objective Assessments Start: 12/04/21 14:01 Freq: NEEDED Status: Active Protocol: Document 12/04/21 10:50 AB (Rec: 12/04/21 14:24 AB [email or web address]) Orientation Orientation/Cognition Level of Alertness Alert Orientation Name,Age,Birthday,Month,Date, Year,Day of Week,Place, Situation Language Function Ability No Deficits Noted Safety Awareness Decreased Safety Awareness Memory Description No Deficits Noted Comments pt is legally blind Gross Range of Motion Lower Extremity ROM Assessment Within Functional Limits Strength Lower Extremity Strength Assessment Within Functional Limits Coordination Assessment Gross Coordination Gross Coordination WNL Sensation Assessment Sensation Gross Sensation Right LE Impaired,Left LE Impaired Comments Sensation Comments BLE neuropathy Muscle Tone Muscle Tone WNL Yes M6 PT-IP Treatment Start: 12/04/21 14:01 Freq: NEEDED Status: Active Protocol: Document 12/04/21 10:50 AB (Rec: 12/04/21 14:24 AB [id number]) Physical Therapy Treatment Education Education Provided Safety M7 PT-IP Assessment and Plan Start: 12/04/21 14:01 Freq: NEEDED Status: Active Protocol: Document 12/04/21 10:50 AB (Rec: 12/04/21 14:24 AB [email or web address]) PT Summary Assessment and Plan Potential Rehabilitation Potential Fair Status of Condition at Evaluation Unstable Summary Impairments Transfers,Gait,Activity Tolerance Assessment Summary pt with significant orthostatic hypotension from 195/80 to 107/47 with c/o dizziness, sweating and having slurred speech with upright position and only tolerate ~ 10-15 sec of standing. Talked with the hospitalist regarding pt's orthostatic hypotension and signs/symptoms and at this time is not medically stable for PT intervention. will d/c PT at this time and hospitalist agreed to re-order PT once pt is more medically stable and able to tolerate more upright activities. Nurse and case assembler also aware of this. Recommeding pt to use a w/c at this time if pt goes home. pt is aware. Frequency of Treatment Frequency Of Treatment Discharge Recommendations To Nursing Amount of Assist Needed 1 Person Assist Discharge Recommendations PT Discharge Recommendations Home with 30/09 Assist Available,Home Health Transportation Needs at Discharge Wheelchair/Cabulance
[2021-12-04 12:02] VITALS: BP 160/58; PULSE 66; RESP 16; TEMP 36.6; O2SAT 97
[2021-12-04 15:50] VITALS: BP 130/65; PULSE 68; RESP 18; TEMP 36.6; O2SAT 98
--- NOTE | 2021-12-04 17:02 | PM.DS.1 ---
History of Present Illness History of Present Illness Date Patient Seen: 12/04/21 Time Patient Seen: 17:02 Chief complaint: thinks she is having TIA's for 2days Narrative: This is a 71-year-old female with the past medical history prior kidney transplant with current possible transplant failure with a baseline creatinine of around 3.1, significant orthostatic hypotension and hypertension, type 2 diabetes, hypothyroidism, and hyperlipidemia who presented with approximately 6 episodes of global weakness that have happened over the past 2 days. She describes these episodes as 2-5 minutes in length, occurring 3 times each of the last 2 days, where she feels extremely weak like she cannot move. She denies any chest pain, palpitations, lightheadedness, or loss of consciousness during the episodes. Her further relays that she cannot move either side during these episodes, and that she tries to speak but he cannot understand her. This resolves after a couple of minutes. There is global weakness, but no facial droop, seizure activity, or loss of bowel or bladder function. It sometimes improves with rest, but not always, and sometimes is worsened with standing, but less so today as she has had episodes at rest. She has had multiple stress tests over the past few years as part of her transplant evaluations, and is actually scheduled for one on 12/25 with . EKG is sinus rhythm with lateral borderline ST depression and T-wave inversion. No prior tracings are available for review and were similar on repeat examination a couple hours after initial study in the emergency room. Her vital signs were notable for hypertension, but with standing her systolic blood pressure dropped nearly 100 points. The remainder her vital signs were unremarkable. Laboratory evaluation was notable for creatinine of 3.09 consistent with the patient's previous known baseline, so of 190, troponin was 0.023 which increased slightly to 0.028 on repeat but is still within normal limits. COVID-19 testing was negative. MRI showed atrophy and chronic ischemic change without acute infarct, but did show old microhemorrhage in the right frontal and bilateral cerebellar deep white matter. Is a admitted for further evaluation of these possible presyncopal episodes or possible TIA. Discharge Providers Provider Date of admission: 12/03/21 18:30 Discharge Date: 12/04/21 Primary care physician: Gene Collins MD Consults: 12/03/21 19:38 Consult to Occupational Therapy Evaluate & Treat Comment: Physician Instructions: Evaluate and treat Consult to Physical Therapy Evaluate & Treat Comment: Physician Instructions: Evaluate and Treat Discharge provider: Samuel Aguilar DO Summary Hospital Course Discharge Diagnosis: 1. Intermittent presyncopal episodes or possible TIA 2. Orthostatic hypotension 3. History of renal transplant, with chronic kidney disease stage IV 4. Essential hypertension 5. Hypothyroidism, chronic 6. DM2 Hospital Course: This is a 71 year old female admitted for multiple episodes of presyncope. She had an MRI that ruled out stroke, but did show micro-hemorrhage slightly worsened from before, likely from her hypertension at rest. Patient did have presyncopal episodes that corresponded to orthostatic hypotension while in the hospital, which the patient has known she has had for a couple of years now. Telemetry monitoring showed no acute events, echocardiogram was also unremarkable, the patient has an outpatient stress test kimberly the next month already as part of her transplant care. I recommended stopping some of her BP medications, though she is in quite a difficult spot as her MRI shows evidence of hypertension causing significant disease to her brain, but on the other hand when she stands now she is presyncopal due to her orthostatic hypotension. Patient did not wish to go to SNF at this time, and was discharged home. I recommend continued follow up with her exhibitions and collections manager, and transplant team for continued management and do recommend specialty referral given her degree of orthostatic hypotension. Patient was advised to persue abdominal binders and compression stockings to see if there is any improvement in her hypotension. Exam Vital Signs (past 8 hours): - 12/04/21 12:02 12/04/21 15:50 Temperature 97.8 F 97.9 F Pulse Rate 66 68 Respiratory Rate 16 18 Blood Pressure 160/58 H 130/65 Pulse Oximetry 97 98 Oxygen Flow Rate 0 0 Oxygen Delivery Method Room Air Oxygen Flow Rate 0 Narrative Exam Narrative: General:? Patient is well developed and well nourished, in no distress at this time. HEENT:? Normocephalic, atraumatic, extraocular muscles intact, oral pharynx is clear and mucous membranes are moist. Neck: supple and symmetric, trachea is midline, no cervical adenopathy. Negative for JVD Chest:? Normal AP diameter and contour without kyphoscoliosis, no tachypnea, equal chest rise bilaterally. Lungs:? CTA b/l no wheezing rhonchi or rales. Cardio:?RRR no m/r/g. Abdomen: S NT ND. No CVA tenderness. Musculoskeletal:? Muscle strength and tone are equal within normal limits, no deformity. Extremities: No edema or joint effusions. No cyanosis or clubbing. Skin:? Pale,? Warm to touch,dry and intact without rashes, ulcerations or petechiae.? Neuro:? Alert and orientated x3,? sensation to touch intact in all extremities, no gross deficits noted of cranial nerves. Psych:? Patient has a well-kept appearance, appropriate affect, mental status attitude thought context and judgment are appropriate for age. Objective Labs Result Diagrams: 12/04/21 06:52 12/04/21 06:52 Labs: Laboratory Results - last 24 hr 12/03/21 12/03/21 12/03/21 16:45 16:45 18:37 WBC RBC Hgb Hct MCV MCH MCHC RDW Plt Count Neut % (Auto) Lymph % (Auto) Ballard % (Auto) Eos % (Auto) Baso % (Auto) Neut # (Auto) Lymph # (Auto) Ballard # (Auto) Eos # (Auto) Baso # (Auto) Sodium Potassium Chloride Carbon Dioxide BUN Creatinine Estimated GFR BUN/Creatinine Ratio Glucose Hemoglobin A1c Calcium Magnesium Ammonia 13 Troponin I 0.028 Triglycerides Cholesterol LDL Cholesterol, Calc HDL Cholesterol TSH SARS-CoV-2 (PCR) Negative 12/04/21 12/04/21 12/04/21 06:52 06:52 06:52 WBC 6.3 RBC 3.54 L Hgb 11.2 L Hct 33.0 L MCV 93.2 MCH 31.6 MCHC 33.9 RDW 12.9 Plt Count 223 Neut % (Auto) 57.4 Lymph % (Auto) 25.5 Ballard % (Auto) 12.3 Eos % (Auto) 3.8 Baso % (Auto) 1.0 Neut # (Auto) 3600 Lymph # (Auto) 1600 Ballard # (Auto) 800 Eos # (Auto) 200 Baso # (Auto) 100 Sodium 140 Potassium 4.7 Chloride 111 H Carbon Dioxide 21 L BUN 33 H Creatinine 2.71 H Estimated GFR 18 L BUN/Creatinine Ratio 12.2 Glucose 68 L D Hemoglobin A1c 7.5 H Calcium 9.0 Magnesium 1.8 Ammonia Troponin I Triglycerides 290 H Cholesterol 146 LDL Cholesterol, Calc 51 HDL Cholesterol 37 L TSH SARS-CoV-2 (PCR) 12/04/21 12/04/21 06:52 06:52 WBC RBC Hgb Hct MCV MCH MCHC RDW Plt Count Neut % (Auto) Lymph % (Auto) Ballard % (Auto) Eos % (Auto) Baso % (Auto) Neut # (Auto) Lymph # (Auto) Ballard # (Auto) Eos # (Auto) Baso # (Auto) Sodium Potassium Chloride Carbon Dioxide BUN Creatinine Estimated GFR BUN/Creatinine Ratio Glucose Hemoglobin A1c Calcium Magnesium Ammonia Troponin I 0.030 Triglycerides Cholesterol LDL Cholesterol, Calc HDL Cholesterol TSH 0.55 SARS-CoV-2 (PCR) [facility] Medical History (Updated 12/03/21 @ 19:31 by Vania Dowd DO) Diabetes HPV (human papilloma virus) infection Hypothyroidism Legally blind Low vision, both eyes Orthostatic hypotension Surgical History (Updated 12/03/21 @ 20:05 by Samuel gAuilar DO) H/O kidney transplant H/O: hysterectomy Family History (Updated 12/03/21 @ 20:06 by Samuel Aguilar DO) Mother Dementia Father Esophageal cancer Heart attack Social History marital status: household members: spouse occupational status: previously employed Smoking Status: Former smoker alcohol intake: current substance use type: does not use Discharge Plan Discharge Plan Patient Disposition: Home Provider Discharge Comment: You were admitted to the hospital with intermittent episodes of slurred speech and weakness. These are more than likely due to orthostatic hypotension. Your BP medications are being held. I recommend compression stockings and an abdominal binder at home. Please follow up with your transplant team and neurologist for further evaluation. You may need referral to a specialist for orthostatic hypotension as an outpatient. IF you do not notice much benefit with stopping your BP medications, you can resume them. Discharge orders & Medications Prescriptions: Continued acetaminophen 500 mg capsule 1,000 mg PO Q6H PRN (Reason: Pain, Moderate) acyclovir 200 mg capsule 200 mg PO QAM fexofenadine 180 mg tablet 180 mg PO DAILY amoxicillin 500 mg capsule 2,000 mg PO .prn aspirin 81 mg tablet,chewable 81 mg PO DAILY mycophenolate mofetil [CellCept] 250 mg capsule 25 mg PO BID clobetasol 0.05 % solution 1 applictn TOP BID PRN (Reason: Outbreak) clocortolone pivalate 0.1 % cream 1 applictn TOP TID PRN (Reason: Outbreak) azelaic acid [Finacea] 15 % foam 1 applictn TOP BID PRN (Reason: Outbreak) Label Comments: Ezema breakouts glipizide 5 mg tablet 2.5 mg PO DAILY lactulose 10 gram/15 mL solution 10 gram PO DAILY pravastatin 80 mg tablet 80 mg PO DAILY levothyroxine [Synthroid] 75 mcg tablet 50 mcg PO DAILY cyclosporine modified [Gengraf] 25 mg capsule See Rx Instructions .ROUTE .COMPLEX Rx Instructions: 75mg in AM, 50mg @ bedtime sodium bicarbonate 650 mg Tablet 1,300 mg PO BID Discontinued amlodipine 2.5 mg tablet 2.5 mg PO DAILY carvedilol [Coreg] 6.25 mg Tablet 9.375 mg PO DAILY Rx Instructions: must administer with a meal/food, takes at noon Follow up/Referrals: Gene Collins MD [Primary Care Provider] - Diet/Activity/Treatments Diet: Diet as Tolerated Activity: As tolerated Visit Report/Discharge Packet Instructions: DI for Orthostatic Hypotension Discharge Data Primary Care Provider: Gene Collins Attending Provider: Samuel Aguilar VTE Deep Vein Thrombosis/Pulmonary Embolism Present on Admission: No
--- NOTE | 2021-12-04 18:28 | PC.NURSE ---
Discharge Note Patient A&O, VSS, RA, no complaint of pain/discomfort. Patient agreeable to discharge plan. Discharge packet reviewed with patient and , all questions/concerns addressed. PIV/TELE discontinued. Patient able to dress self and pack all belongings. Patient taken down via wheelchair to POV.
== END 2021-12-04 18:30 | disposition home or self-care (01) ==
LOC: ED 14:11 → AC 18:31
PROVIDERS: Admitting Provider Internal Medicine; Emergency Provider Emergency Medicine; PCP Internal Medicine; Referring Provider Emergency Medicine; Visit Provider Internal Medicine
DX: I95.1 Orthostatic hypotension (principal); R47.9 Unspecified speech disturbances; H54.8 Legal blindness, as defined in USA; I12.0 Hypertensive chronic kidney disease with stage 5 chronic kidney disease or end stage renal disease; E11.22 Type 2 diabetes mellitus with diabetic chronic kidney disease; N18.6 End stage renal disease; Z94.0 Kidney transplant status; E03.9 Hypothyroidism, unspecified; E78.5 Hyperlipidemia, unspecified; R29.700 NIHSS score 0; Z20.822 Contact with and (suspected) exposure to COVID-19
CPT/HCPCS: 36415; 70553; 71045; 80048; 80053; 80061; 82140; 82550; 82962; 83036; 83605; 83690; 83735; 84145; 84443; 84484; 85025; 85610; 85730; 87635; 93005; 93306; 96360; 96361; 96372; 97163; 99285; C9803; G0378; J1650